=== PATIENT | female | born 1960 | race Caucasian/White ===

== ENCOUNTER 2017-07-04 15:52 | Emergency (ER) | payer BC ==
[2017-07-04] MEDS ORDERED: Amoxicillin/Clavulanate K 875-125 MG Tab PO ONE (15:53)
[2017-07-04] MEDS ORDERED: Acetaminophen/HYDROcodone 325-5 MG Tab PO ONE (15:53)
--- NOTE | 2017-07-04 16:31 | EDM.PDOC ---
ED HPI GENERAL MEDICAL PROBLEM - General Chief Complaint: ENT Problem Stated Complaint: tooth ache Time Seen by Provider: 07/04/17 16:11 Source of Information: Reports: Patient History Limitations: Reports: No Limitations - History of Present Illness INITIAL COMMENTS - FREE TEXT/NARRATIVE: Sandra is a 56 year old female who presents to the ED with c/o left lower tooth pain. She reports the pain started on Wednesday and has progressively worsened. She reports she did call her dentist on Wednesday, but he is on vacation. She reports the pain is unbearable. She does have swelling to her left lower jaw. She reports she does have a bridge and has had a root canal in the affected area. She reports she has been trying to ice the area. She has been taking Tylenol and ibuprofen, which do not relieve the pain. She denies any fever or chills. Denies any other symptoms. 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 Constitutional: Denies: Fever, Chills ED EXAM, ENT - Physical Exam Exam: See Below Exam Limited By: No Limitations General Appearance: Alert, WD/WN, Mild Distress Mouth/Throat: Normal Lips, Normal Oropharynx, Dental Abcess (1st & 2nd molar- posterior left), Dental Pain, Dental Tenderness, Gum Swelling, Other (jaw swelling, left posterior). No: Dental Trauma, Throat Pain Neck: Normal Inspection, Supple, Non-Tender, Full Range of Motion Course - Vital Signs Last Recorded V/S: Last Vital Signs Temp 99.1 F 07/04/17 16:07 Pulse 81 07/04/17 16:07 Resp 20 07/04/17 16:07 BP 135/62 07/04/17 16:07 Pulse Ox 98 07/04/17 16:07 - Orders/Labs/Meds Meds: Medications Discontinued Medications Generic Name Dose Route Start Last Admin Trade Name Smita PRN Reason Stop Dose Admin Hydrocodone Bitart/Acetaminophen 2 packet 07/04/17 16:38 07/04/17 16:41 Take Home: Acetaminophen/Hydrocod, 2 Tab Pack PO 07/04/17 16:39 2 packet ONETIME ONE Administration Amoxicillin/Clavulanate Potassium 1 packet 07/04/17 16:27 07/04/17 16:37 Take Home: Amox/Clavulanate 875-12, 2 Tab Pac PO 07/04/17 16:28 1 packet ONETIME ONE Administration Ketorolac Tromethamine 60 mg 07/04/17 16:27 07/04/17 16:37 Toradol IM 07/04/17 16:28 60 mg ONETIME ONE Administration Departure - Departure Time of Disposition: 16:33 Disposition: Home, Self-Care 01 Condition: Good Clinical Impression: Dental abscess - Discharge Information Prescriptions: Amoxicillin/Clavulanate K [Augmentin XR 1000-62.5 MG] 1 tab PO Q12H 9 Days #18 tab.er Instructions: Dental Abscess, [id number] Referrals: Rosita Yancey PA-C [Primary Care Provider] - Forms: ED Department Discharge Additional Instructions: Augmentin twice daily x 10 days. Consult with dentist regarding need for further antibiotic treatment after dental exam. [place] (hydrocodone/acetaminophen) every 6 hours as needed for pain. May alternate with 800 mg ibuprofen every 8 hours as needed. Ice affected area for 20 minutes at a time at least 3 times per day Follow up with dentist [facility]. Recommend calling dental office [facility] in morning
[2017-07-04] MEDS: Take Home: Amoxicillin/Clavulanate K 875-125 MG Tab, 2 Tab Pack PO ONE (16:37)
[2017-07-04] MEDS: Ketorolac 60 MG/2 ML SDV IM ONE (16:37)
[2017-07-04] MEDS: Take Home: Acetaminophen/HYDROcodone 325-5 MG, 2 Tab Pack PO ONE (16:41)
== END 2017-07-04 16:46 | disposition home or self-care (01) ==
LOC: CC.ED 15:52
DX: K04.7 Periapical abscess without sinus (principal)
CPT/HCPCS: 96372; 99282; A9270-GY; J1885

== ENCOUNTER 2017-07-05 16:36 | Observation (INO) | payer BC ==
[2017-07-05 17:15] LABS: CHLORIDE,CL 104 mEq/L (98-106); SODIUM,NA 140 mEq/L (136-145)
[2017-07-05] MEDS ORDERED: Clindamycin Phosphate in D5W 300 MG in Premix Bag 1 BAG IV ONE ×2 (17:19)
[2017-07-05] MEDS ORDERED: Iopamidol 612 MG/ML 100 ML Bottle IVPUSH ONE (17:49)
--- NOTE | 2017-07-05 18:31 | EDM.PDOC ---
ED HPI GENERAL MEDICAL PROBLEM - General Chief Complaint: General Stated Complaint: TOOTHACHE Time Seen by Provider: 07/05/17 16:53 Source of Information: Reports: Patient, Provider (Dr. Jeremias Sales) History Limitations: Reports: No Limitations - History of Present Illness INITIAL COMMENTS - FREE TEXT/NARRATIVE: Sandra is a 56 yo female who presents to the ER, accompanied by her , with concerns of an abscess on the left side of her face. She admits she started to notice some discomfort and mild swelling last week Wednesday. States thru the weekend it gradually got worse and came into the ER yesterday. Jennifer Arenas gave her Toradol 60mg IM, [place] prescription and prescription for Augmentin. She states she took the two Augmentin yesterday. She admits she hasn' t filled the Augmentin prescription. just went and filled the [place] for her when she came into the ER and took 1 tablet. She ended up seeing Dr. Sales this morning at his dental office and underwent some imaging and he couldn't find any obvious abscess intra-orally to drain. He gave her a prescription for Clindamycin and she has taken 1 tablet. She also admits she has taken ibuprofen and Tylenol thru the weekend. She feels all the medications have made her nauseated. Denies any fevers. States otherwise she is feeling okay, concerned as the swelling has worsened today since seeing Dr. Sales. Onset: Gradual Onset Date: 06/30/17 Duration: Getting Worse Location: Reports: Face Improves with: Reports: Cold Therapy, Medication Associated Symptoms: Reports: Loss of Appetite, Nausea/Vomiting. 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 ) Tooth/Teeth Pain Score (Numeric/FACES): 3 - Related Data Allergies Allergy/AdvReac Type Severity Reaction Status Date / Time No Known Allergies Allergy Verified 07/05/17 16:46 Home Meds: Home Meds Clindamycin HCl 300 mg PO Q6H 07/05/17 [History] Hydrocodone/Acetaminophen [Hydrocodon-Acetaminophen 5-325] 1 each PO Q4H PRN [History] Ibuprofen 800 mg PO Q6HR PRN 07/05/17 [History] Past Medical History - Past Health History Medical/Surgical History: Denies Medical/Surgical History - Past Surgical History Female Surgical History: Reports: D&C Social & Family History - Tobacco Use Smoking Status *Q: Never Smoker - Caffeine Use Caffeine Use: Reports: Soda - Recreational Drug Use Recreational Drug Use: No ED ROS GENERAL - Review of Systems Review Of Systems: ROS reveals no pertinent complaints other than HPI. Constitutional: Denies: Fever, Chills, Decreased Appetite HEENT: Reports: Dental Pain Respiratory: Reports: No Symptoms Cardiovascular: Reports: No Symptoms GI/Abdominal: Reports: No Symptoms : Reports: No Symptoms Musculoskeletal: Denies: Neck Pain Skin: Reports: Erythema ED EXAM, GENERAL - Physical Exam Exam: See Below Exam Limited By: No Limitations General Appearance: Alert, Mild Distress (holding ice pack to side of cheek, left side) Eye Exam: Bilateral Eye: Normal Inspection Ears: Normal External Exam, Normal Canal, Hearing Grossly Normal, Normal TMs Nose: Normal Inspection, Normal Mucosa Throat/Mouth: No Airway Compromise, Inflammation Head: Facial Swelling (left mandibular area), Facial Tenderness. No: Sinus Tenderness Neck: Tender Lateral (along left anterior neck, does not cross midline) Respiratory/Chest: No Respiratory Distress, Lungs Clear, Normal Breath Sounds, No Accessory Muscle Use Cardiovascular: Normal Peripheral Pulses, Regular Rate, Rhythm, No Murmur Neurological: Alert, Oriented, Normal Cognition Psychiatric: Normal Affect, Normal Mood Skin Exam: Erythema, Increased Warmth Course - Vital Signs Last Recorded V/S: Last Vital Signs Temp 98.8 F 07/05/17 16:43 Pulse 89 07/05/17 16:43 Resp 16 07/05/17 16:43 BP 115/67 07/05/17 16:43 Pulse Ox 97 07/05/17 16:43 - Orders/Labs/Meds Labs: Laboratory Tests 07/05/17 07/05/17 Range/Units 16:52 16:52 WBC 10.2 H (5.0-10.0) 10^3/uL RBC 3.80 L (4.00-5.50) 10^6/uL Hgb 11.4 L (12.0-16.0) g/dL Hct 34.6 L (37.0-47.0) % MCV 91.1 (82.0-94.0) fL MCH 30.0 (27.0-32.0) pg MCHC 32.9 L (33.0-38.0) g/dL RDW Coeff of Pauline 12.7 (11.0-15.0) % Plt Count 197 (150-400) 10^3/uL Neut % (Auto) 84.9 (35-85) % Lymph % (Auto) 7.0 L (10-55) % [place] % (Auto) 7.9 (0-16) % Eos % (Auto) 0.1 (0-5) % Baso % (Auto) 0.1 (0-3) % Neut # (Auto) 8.68 H (1.80-7.00) 10^3/uL Lymph # (Auto) 0.72 L (1.00-4.80) 10^3/uL [place] # (Auto) 0.81 H (0.00-0.80) 10^3/uL Eos # (Auto) 0.01 (0.00-0.45) 10^3/uL Baso # (Auto) 0.01 10^3/uL Sodium 140 (136-145) mEq/L Potassium 4.0 (3.5-5.0) mEq/L Chloride 104 (98-106) mEq/L Carbon Dioxide 28 (21-32) mmol/L BUN 8 (7-18) mg/dL Creatinine 0.7 (0.6-1.0) mg/dL Est Cr Clr Drug Dosing 75.66 mL/min Estimated GFR (MDRD) > 60 (>=60) mL/min Glucose 141 H D (75-99) mg/dL Calcium 8.5 (8.4-10.1) mg/dL C-Reactive Protein 16.0 H (0.2-0.8) mg/dL Meds: Medications Discontinued Medications Generic Name Dose Route Start Last Admin Trade Name Freq PRN Reason Stop Dose Admin Clindamycin Phosphate 300 mg/ 50 mls @ 100 mls/hr 07/05/17 17:19 07/05/17 17: 32 Premix IV 07/05/17 17:48 100 mls/hr ONETIME ONE Administration Iopamidol 100 ml 07/05/17 17:49 Isovue-300 (61%) IVPUSH 07/05/17 17:50 ONETIME ONE Departure - Departure Time of Disposition: 18:00 Disposition: Refer to Observation Condition: Fair Clinical Impression: Facial cellulitis, Dental abscess - Discharge Information - Problem List & Annotations (1) Dental abscess SNOMED Code(s): 793062924 Code(s): K04.7 - PERIAPICAL ABSCESS WITHOUT SINUS Status: Acute Current Visit: Yes (2) Facial cellulitis SNOMED Code(s): 659552374 Code(s): L03.211 - CELLULITIS OF FACE Status: Acute Current Visit: Yes - Problem List Review Problem List Initiated/Reviewed/Updated: Yes - Assessment/Plan Admission H&P: Please use this note as an admission H&P Plan: Consulted with Dr. Sales, which he did bring over a copy of her 3d imaging. Unfortunately, we were unable to see soft tissue and elected to proceed with CT soft tissue neck. We are currently waiting for final report via radiologist. I reviewed the CT scan and do not see any obvious dental/skin abscesses. AGain waiting for final radiology report. Discussed with Sandra inpatient therapy under observation to make sure the cellulitis does not continue to spread. Sandra was in agreement. We will admit to Dr. Nina's services under observation at this timefor IV antibiotics and pain control.
[2017-07-05] MEDS ORDERED: Ondansetron 4 MG/2 ML SDV IV PRN (18:51)
[2017-07-05] MEDS ORDERED: Sodium Chloride 0.9% 10 ML Syringe FLUSH PRN (18:51)
[2017-07-05] MEDS: Acetaminophen/HYDROcodone 325-5 MG Tab**OWN MED PO PRN (21:40)
[2017-07-05] MEDS: Clindamycin Phosphate in D5W 300 MG in Premix Bag 1 BAG IV SCH ×2 (23:37)
[2017-07-06] MEDS: Acetaminophen/HYDROcodone 325-5 MG Tab**OWN MED PO PRN ×2 (01:42→08:37)
[2017-07-06] MEDS: Ibuprofen 200 MG Tab PO PRN (03:59)
[2017-07-06] MEDS: Clindamycin Phosphate in D5W 300 MG in Premix Bag 1 BAG IV SCH ×6 (05:51→18:10)
[2017-07-06 07:36] LABS: CHLORIDE,CL 103 mEq/L (98-106); SODIUM,NA 140 mEq/L (136-145)
[2017-07-06] MEDS ORDERED: methylPREDNISolone Sodium Succinate 125 MG/2 ML SDV IVPUSH ONE (09:40)
--- NOTE | 2017-07-06 20:56 | PCM.PN ---
- General Info Date of Service: 07/06/17 Admission Dx/Problem (Free Text): Facial Cellulitis Functional Status: Reports: Pain Controlled, Tolerating Diet, Ambulating - Review of Systems General: Denies: Fever, Fatigue HEENT: Reports: Other (left facial swelling to the cheek and jawline). Denies: Sore Throat Pulmonary: Denies: Shortness of Breath, Cough Cardiovascular: Denies: Chest Pain, Lightheadedness Gastrointestinal: Reports: No Symptoms Musculoskeletal: Reports: No Symptoms Skin: Reports: Other (facial redness and swelling) Neurological: Reports: No Symptoms - Patient Data Vitals - Most Recent: Last Vital Signs Temp 97.5 F 07/06/17 20:00 Pulse 86 07/06/17 20:00 Resp 16 07/06/17 20:00 BP 104/51 L 07/06/17 20:00 Pulse Ox 99 07/06/17 20:00 Weight - Most Recent: 123 lb 10.869 oz I&O - Last 24 Hours: Intake & Output 07/06/17 07/06/17 07/06/17 06:59 14:59 22:59 Intake Total 100 50 Balance 100 50 Lab Results Last 24 Hours: Laboratory Results - last 24 hr 07/06/17 07/06/17 Range/Units 05:11 05:11 WBC 6.6 (5.0-10.0) 10^3/uL RBC 3.59 L (4.00-5.50) 10^6/uL Hgb 10.8 L (12.0-16.0) g/dL Hct 33.1 L (37.0-47.0) % MCV 92.2 (82.0-94.0) fL MCH 30.1 (27.0-32.0) pg MCHC 32.6 L (33.0-38.0) g/dL RDW Coeff of Pauline 12.7 (11.0-15.0) % Plt Count 196 (150-400) 10^3/uL Neut % (Auto) 73.6 (35-85) % Lymph % (Auto) 14.0 (10-55) % [place] % (Auto) 11.1 (0-16) % Eos % (Auto) 1.1 (0-5) % Baso % (Auto) 0.2 (0-3) % Neut # (Auto) 4.82 (1.80-7.00) 10^3/uL Lymph # (Auto) 0.92 L (1.00-4.80) 10^3/uL [place] # (Auto) 0.73 (0.00-0.80) 10^3/uL Eos # (Auto) 0.07 (0.00-0.45) 10^3/uL Baso # (Auto) 0.01 10^3/uL Sodium 140 (136-145) mEq/L Potassium 3.7 (3.5-5.0) mEq/L Chloride 103 (98-106) mEq/L Carbon Dioxide 30 (21-32) mmol/L BUN 6 L (7-18) mg/dL Creatinine 0.7 (0.6-1.0) mg/dL Est Cr Clr Drug Dosing 81.37 mL/min Estimated GFR (MDRD) > 60 (>=60) mL/min Glucose 100 H D (75-99) mg/dL Calcium 8.1 L (8.4-10.1) mg/dL C-Reactive Protein 12.6 H (0.2-0.8) mg/dL Med Orders - Current: Current Medications Hydrocodone Bitart/Acetaminophen ([place] 325-5 Mg) 1 tab PO Q4H PRN PRN Reason: PAIN Last Admin: 07/06/17 08:37 Dose: 1 tab Clindamycin Phosphate 300 mg/ (Premix) 50 mls @ 100 mls/hr IV Q6H JARED Last Admin: 07/06/17 18:10 Dose: 100 mls/hr Ibuprofen (Motrin) 800 mg PO Q6H PRN PRN Reason: PAIN Last Admin: 07/06/17 03:59 Dose: 800 mg Ondansetron HCl (Zofran) 4 mg IV Q4H PRN PRN Reason: Nausea/Vomiting Last Admin: 07/05/17 21:04 Dose: 4 mg Sodium Chloride (Saline Flush) 10 ml FLUSH ASDIRECTED PRN PRN Reason: Keep Vein Open Discontinued Medications Clindamycin Phosphate 300 mg/ (Premix) 50 mls @ 100 mls/hr IV ONETIME ONE Stop: 07/05/17 17:48 Last Admin: 07/05/17 17:32 Dose: 100 mls/hr Iopamidol (Isovue-300 (61%)) 100 ml IVPUSH ONETIME ONE Stop: 07/05/17 17:50 Last Admin: 07/05/17 20:40 Dose: Not Given Methylprednisolone Sodium Succinate (Solu-Medrol) 125 mg IVPUSH NOW ONE Stop: 07/06/17 09:41 Last Admin: 07/06/17 10:37 Dose: 125 mg - Exam General: Alert, Oriented HEENT: Mucous Membr. Moist/[place], Other (posterior pharynx is pink, no abscess noted. Moderate amount of facial swelling and redness to left cheek and along jaw line. Tender. ) Neck: Supple Lungs: Clear to Auscultation, Normal Respiratory Effort Cardiovascular: Regular Rate, Regular Rhythm GI/Abdominal Exam: Normal Bowel Sounds, Soft, Non-Tender Extremities: Normal Inspection, No Pedal Edema Skin: Other (redness to left cheek and along jaw line) Neurological: No New Focal Deficit - Problem List & Annotations (1) Facial cellulitis SNOMED Code(s): 516558093 Code(s): L03.211 - CELLULITIS OF FACE Status: Acute Priority: High Current Visit: Yes (2) Dental abscess SNOMED Code(s): 963114046 Code(s): K04.7 - PERIAPICAL ABSCESS WITHOUT SINUS Status: Acute Priority : High Current Visit: Yes - Problem List Review Problem List Initiated/Reviewed/Updated: Yes - My Orders Last 24 Hours: My Active Orders 07/07/17 05:11 C-REACTIVE PROTEIN [CHEM] AM - Assessment Assessment:: Facial Cellulitis Dental Abscess - Plan Plan:: Patient states has noted slight improvement in facial swelling and redness. States the neck area has improved. Unable to open her mouth fully. Is tender to the facial region. Afebrile. No dysphagia. WBC is stable at 6.6. CRP improved from 16 down to 12.[address] Butcher evaluate patient and review CT scan. Continue Cleocin. Give one dose of Solu Medrol IV. Probable discharge tomorrow on oral antibiotics if continues to improve.
[2017-07-07] MEDS: Ibuprofen 200 MG Tab PO PRN (00:06)
[2017-07-07] MEDS: Clindamycin Phosphate in D5W 300 MG in Premix Bag 1 BAG IV SCH ×4 (00:06→06:13)
--- NOTE | 2017-07-07 17:49 | PCM.DCSUM1 ---
Discharge Summary - Hospital Course Free Text/Narrative:: Patient admitted from ED per Roberto Yancey with facial cellulitis/tooth abscess. Patient had been experiencing tooth pain for about 2 days last week and did contact Dr. Plunkett's office. They set her up to be seen the first week of July as he is currently on vacation. On Wednesday evening, the pain was more intense and by Wednesday, started to note facial swelling. She was seen in the ER and started on Augmentin. Was able to be seen by Dr. Sales on Wednesday. He did do 3D images and switched her to Cleocin and [place]. Patient relates the swelling continued to increase, noted more redness and pain by evening so returned back to the ER. Did have a CT scan at that time and was admitted for IV Cleocin and pain control. CRP was elevated at 16. - Discharge Data Discharge Date: 07/07/17 Discharge Disposition: Home, Self-Care 01 Condition: Good - Discharge Diagnosis/Problem(s) (1) Facial cellulitis SNOMED Code(s): 021217673 ICD Code: L03.211 - CELLULITIS OF FACE Status: Acute Priority: High (2) Dental abscess SNOMED Code(s): 567859828 ICD Code: K04.7 - PERIAPICAL ABSCESS WITHOUT SINUS Status: Acute Priority : High - Patient Summary/Data Complications: none Consults: Dr. Butcher, ENT Hospital Course: Patient has had good improvement of her symptoms. Facial swelling has improved , able to open her mouth further and has less pain. Dr. Butcher did do a consult with patient. Was able to express out more purulent fluid from the gum line today as well as review the CT. Does feel all of the infection is coming from a molar tooth. She is afebrile. Labs have improved, CRP down to 7.7 today. - Patient Instructions Diet: Usual Diet as Tolerated Activity: As Tolerated - Discharge Plan Home Medications: Home Meds Clindamycin HCl 300 mg PO Q6H 07/05/17 [History] Hydrocodone/Acetaminophen [Hydrocodon-Acetaminophen 5-325] 1 each PO Q4H PRN [History] Ibuprofen 800 mg PO Q6HR PRN 07/05/17 [History] Patient Handouts: Cellulitis, Adult Forms: ED Department Discharge Referrals: Kade Plunkett DDS [Physician] - (Follow up with Dr. Plunkett for definitive care for tooth) - Discharge Summary/Plan Comment DC Time >30 min.: No Discharge Summary/Plan Comment: Discharge home Continue Cleocin 300 mg QID NOrco for pain Follow up with Dr. Plunkett next week as planned - General Info Date of Service: 07/07/17 Admission Dx/Problem (Free Text: Facial Cellulitis Functional Status: Reports: Pain Controlled, Tolerating Diet, Ambulating - Review of Systems General: Denies: Fever, Weakness, Fatigue HEENT: Reports: Other (facial swelling and redness mild today) Pulmonary: Reports: No Symptoms Cardiovascular: Denies: Chest Pain, Edema, Lightheadedness Gastrointestinal: Denies: Abdominal Pain, Nausea, Vomiting Genitourinary: Reports: No Symptoms Musculoskeletal: Reports: No Symptoms Skin: Reports: Other (erythema) Neurological: Reports: No Symptoms Psychiatric: Reports: No Symptoms - Patient Data Vitals - Most Recent: Last Vital Signs Temp 97.5 F 07/07/17 08:00 Pulse 74 07/07/17 08:00 Resp 16 07/07/17 08:00 BP 114/69 07/07/17 08:00 Pulse Ox 100 07/07/17 08:00 Weight - Most Recent: 123 lb 10.869 oz I&O - Last 24 hours: Intake & Output 07/07/17 07/07/17 07/07/17 06:59 14:59 22:59 Intake Total 50 Balance 50 Lab Results - Last 24 hrs: Laboratory Results - last 24 hr 07/07/17 Range/Units 07:00 C-Reactive Protein 7.7 H (0.2-0.8) mg/dL Med Orders - Current: Current Medications Discontinued Medications Hydrocodone Bitart/Acetaminophen ([place] 325-5 Mg) 1 tab PO Q4H PRN PRN Reason: PAIN Last Admin: 07/06/17 08:37 Dose: 1 tab Clindamycin Phosphate 300 mg/ (Premix) 50 mls @ 100 mls/hr IV ONETIME ONE Stop: 07/05/17 17:48 Last Admin: 07/05/17 17:32 Dose: 100 mls/hr Clindamycin Phosphate 300 mg/ (Premix) 50 mls @ 100 mls/hr IV Q6H JARED Last Admin: 07/07/17 06:13 Dose: 100 mls/hr Ibuprofen (Motrin) 800 mg PO Q6H PRN PRN Reason: PAIN Last Admin: 07/07/17 00:06 Dose: 800 mg Iopamidol (Isovue-300 (61%)) 100 ml IVPUSH ONETIME ONE Stop: 07/05/17 17:50 Last Admin: 07/05/17 20:40 Dose: Not Given Methylprednisolone Sodium Succinate (Solu-Medrol) 125 mg IVPUSH NOW ONE Stop: 07/06/17 09:41 Last Admin: 07/06/17 10:37 Dose: 125 mg Ondansetron HCl (Zofran) 4 mg IV Q4H PRN PRN Reason: Nausea/Vomiting Last Admin: 07/05/17 21:04 Dose: 4 mg Sodium Chloride (Saline Flush) 10 ml FLUSH ASDIRECTED PRN PRN Reason: Keep Vein Open - Exam General: Reports: Alert, Oriented HEENT: Reports: Mucous Membr. Moist/[place], Other (left facial swelling along cheek and jaw line much improved, mild now in nature. Still somewhat tender with palpation but has significantly improved from admission. ) Neck: Reports: Supple Lungs: Reports: Clear to Auscultation, Normal Respiratory Effort Cardiovascular: Reports: Regular Rate, Regular Rhythm GI/Abdominal Exam: Normal Bowel Sounds, Soft, Non-Tender Extremities: Normal Inspection, No Pedal Edema Skin: Reports: Warm, Dry Neurological: Reports: No New Focal Deficit
--- NOTE | 2017-07-08 11:34 | PN ---
DATE: 07/07/2017 SUMMARY: Deyanira Foster has kindly asked me to see her with regard to left mandibular swelling. She noticed this swelling, which came on fairly suddenly with severe associated pain. She was admitted and IV clindamycin has been used. She had originally seen her primary care dentist and panorogram had been obtained without much noted on that particular study. She now has been treated over the past couple of days with IV clindamycin and the swelling is regressing. I saw her on 07/06 and also the morning of 07/07. Her general ENT examination does show swelling with generalized hyperemia involving the left body of the mandible. There is moderate swelling with tenderness that is persisting both from yesterday and today. The swelling does not have any fluctuation and it is quite firm. The intraoral examination shows a large bud of granulation tissue that is found at the junction between the 1st and 2nd left mandibular molars on the buccal side. On expressing this area, a small amount of pus and also bloody material was expressed directly from the granulation tissue. The remainder of the intraoral exam including bimanual examination shows firm swelling without fluctuation. The remainder of her ENT examination is remarkable with a large plug of cerumen that is carefully removed from the right ear. The nose, pharynx, and tympanic membranes are otherwise negative. The remainder of her neck examination is also normal. Actually, agree that this is a dental origin abscess-cellulitis that at this point probably does not need to be drained. I am going to be around tomorrow and I can check her again to see if there is any change. In between time, warm compresses and the use of clindamycin is surely recommended along with a followup evaluation with her primary care dentist. I do appreciate the kind referral and I will recheck her progress. MAITE/LONG /[id number]
== END 2017-07-07 09:50 | disposition home or self-care (01) ==
LOC: CC.ED 16:36 → UNDOADMOB 17:40 → CC.MS 17:40
PROVIDERS: ADMIT Physician Assistant Medical; ATTEND Family Medicine
DX: L03.211 Cellulitis of face (principal); K04.7 Periapical abscess without sinus; Z79.2 Long term (current) use of antibiotics; Z79.899 Other long term (current) drug therapy
CPT/HCPCS: 36415; 70491; 80048; 85025; 86140; 96365; 99283; A9270; J2405; J2930; Q9967; 96366; 96375; 96376; G0378